=== PATIENT | female | born 1985 | race Two or more races ===

== ENCOUNTER 2024-03-17 22:36 | Emergency (ER) | payer OTHER ==
[~2024-03-17] VITALS: Ht 157.5 cm; Wt 58.2 kg
[2024-03-17 22:40] VITALS: TEMP 97.2
[2024-03-17 23:36] LABS: GLUCOMETER DEV NAME(LOC) ERT.6; GLUCOSE,POINT OF CARE 103 MG/DL (70-110)
[2024-03-17 23:38] LABS: BASOPHILS % (AUTO) 1.2 % (0.0-2.0); EOSINOPHILS % (AUTO) 2.9 % (1.0-6.0); HEMATOCRIT 39.9 % (36-46); HEMOGLOBIN 13.3 g/dL (12.0-16.0); LYMPHOCYTES # (AUTO) 3.6 K/uL (1.0-4.8); LYMPHOCYTES % (AUTO) 37.5 % (22.0-44.0); MEAN CORPUSCULAR HEMOGLOBIN 32.2 pg (26.0-34.0); MEAN CORPUSCULAR HGB CONC 33.3 G/dL (31.0-37.0); MEAN CORPUSCULAR VOLUME 97 fL (80-100); MONOCYTES # (AUTO) 0.6 K/uL (0.1-1.0); MONOCYTES % (AUTO) 6.7 % (2.0-9.0); NEUTROPHILS # (AUTO) 4.9 K/uL (1.8-7.7); NEUTROPHILS % (AUTO) 51.7 % (40.0-70.0); PLATELET COUNT (AUTO) 285 K/uL (150-450); RED BLOOD CELL COUNT(AUTO) 4.12 MIL/uL (4.00-5.20); RED CELL DISTRIBUTION WIDTH 12.5 % (11.5-14.5); WHITE BLOOD COUNT (AUTO) 9.5 K/uL (4.5-11.0)
[2024-03-17 23:46] LABS: ANION GAP 9 mmol/L (8-16); CALCIUM, TOTAL 8.6 mg/dL (8.8-10.5); CARBON DIOXIDE 25 mmol/L (22-29); CHLORIDE 103 mmol/L (98-107); CREATININE 0.73 mg/dL (0.60-1.30); GLOMERULAR FILTR. RATE CALC > 60 mL/min (>60); GLUCOSE,RANDOM 92 mg/dL (70-110); POTASSIUM 3.8 mmol/L (3.5-5.1); SODIUM SERUM 137 mmol/L (136-145); UREA NITROGEN, BLOOD 5 mg/dL (7-18)
[2024-03-17 23:55] LABS: ALCOHOL, BLOOD (SERUM) 192 mg/dL (0-10)
[2024-03-18] MEDS ORDERED: LORazepam 2 MG/ML VIAL IVP ONE (00:15)
[2024-03-18] MEDS: LevETIRAcetam 1,000 MG in DEXTROSE 5%-WATER 100 ML IV ONE (01:49)
[2024-03-18] MEDS: LACOSAMIDE 100 MG TABLET PO ONE (01:50)
[2024-03-18] MEDS: LORazepam 2 MG/ML VIAL IVP ONE (01:50)
[2024-03-18] MEDS: ACETAMINOPHEN 500 MG TABLET PO ONE (02:38)
[2024-03-18] MEDS: SODIUM CHLORIDE 0.9% 2,000 ML IV ONE (02:39)
[2024-03-18] MEDS: IBUPROFEN 600 MG TABLET PO ONE (02:39)
[2024-03-18] MEDS ORDERED: LACO50TA16 PO (02:54)
[2024-03-18 05:21] VITALS: BP 97/52; PULSE 92; RESP 16; O2SAT 96
== END 2024-03-18 05:29 | disposition home or self-care (01) ==
LOC: EMS 22:36
DX: G40.909 Epilepsy, unspecified, not intractable, without status epilepticus (principal); F10.129 Alcohol abuse with intoxication, unspecified; R21 Rash and other nonspecific skin eruption; R25.1 Tremor, unspecified; R51.9 Headache, unspecified; Y90.6 Blood alcohol level of 120-199 mg/100 ml
CPT/HCPCS: 99284; 80048; 82962; 84703; 85025; 36415; 96365; 96361; 96375; G0480; J0712; J2060; J7060; J7030